=== PATIENT | male | born 1950 | race Two or more races ===

== ENCOUNTER 2018-09-18 06:59 | Emergency (ER) | payer OTHER ==
[~2018-09-18] VITALS: Ht 172.7 cm; Wt 79.4 kg
[2018-09-18] MEDS ORDERED: METFORMIN HCL500 M4 ORAL (07:13)
[2018-09-18] MEDS ORDERED: DIOVAN80 MG ORAL (07:13)
--- NOTE | 2018-09-18 07:24 | Emergency Room Report ---
History of Present Illness General Chief Complaint: General Complaint Source: Patient Present Illness HPI Patient was eating fish last week and has a bone stuck in his throat. No fevers. Pain when swallowing = burning, not sharp. No dyspnea or chest pain. Pain is rated 3/10. Nonradiating on the left side. He denies fevers or chills. He is able to eat. He has some pain with swallowing. H/O diabetes - not checked for long time No palpitations, nausea, vomiting, diarrhea, dysuria, abdominal pain, shortness of breath, depression, visual changes, headache. Allergies: Coded Allergies: No Known Allergies (Unverified , 09/18/18) Patient History Past Medical History: see triage record Social History: Denies: smoking Social History Narrative With daughter Reviewed Nursing Documentation: PMH: Agreed; PSxH: Agreed Nursing Documentation-PMH Past Medical History: No History, Except For Hx Hypertension: Yes - arthritis, sciatica, high cholesterol Hx Diabetes: Yes Review of Systems All Other Systems: negative except mentioned in HPI Physical Exam Vital Signs Date Time Temp Pulse Resp B/P (MAP) Pulse Ox O2 Delivery O2 Flow Rate FiO2 09/18/18 07:07 97.3 71 16 147/94 98 Room Air Sp02 EP Interpretation: reviewed, normal General Appearance: well appearing, no apparent distress, alert, GCS 15 Head: normocephalic, atraumatic Eyes: bilateral eye other - Pterygium ENT: moist mucus membranes, pharyngeal erythema, other - FB L tonsilar pillar Neck: full range of motion, supple, other - No stridor Respiratory: lungs clear, normal breath sounds, no respiratory distress, speaking full sentences Cardiovascular #1: regular rate, rhythm Cardiovascular #2: 2+ radial (R) Gastrointestinal: normal inspection Musculoskeletal: back normal, gait/station normal, normal range of motion Neurologic: alert, oriented x3, normal gait, grossly normal Psychiatric: mood/affect normal Skin: no rash Procedures Additional Procedure Procedure Narrative HurriCaine spray used. Direct laryngoscopy with GlideAScope. No FB seen. Abrasions below L tonsilar fossa. Medical Decision Making Diagnostic Impression: Primary Impression: Abrasion of pharynx Qualified Codes: S10.11XA - Abrasion of throat, initial encounter ER Course Patient presents with a burning feeling in his throat that he thinks coming from a fish bone which he ate a week ago. On initial exam it looks like there was one present. With direct visualization the fishbone was not present. Direct laryngoscopy indicated. Direct laryngoscopy done with Glidascope. Abrasion seen no foreign body. Soft tissue x-ray ordered. Amoxicillin also ordered. Accu-Chek normal. Soft tissue AP and lateral neck without foreign body. Patient improved with decreased pain after Hurricaine spray. Swallowing without difficulty. Discussed treatment plan with patient and daughter. Patient stable for outpatient observation and treatment. Other X-Ray Diagnostic Results Other X-Ray Diagnostic Results : X-Ray ordered: AP lateral soft tissue neck # of Views/Limited Vs Complete: 2 View Indication: Pain EP Interpretation: Yes Interpretation: no soft tissue swelling, other - Degenerative disc disease no foreign body Impression: Other Electronically Signed by: Electronically signed by Shon Banerjee MD Last Vital Signs Date Time Temp Pulse Resp B/P (MAP) Pulse Ox O2 Delivery O2 Flow Rate FiO2 09/18/18 10:11 98.0 75 16 132/76 98 Room Air Status: improved Disposition: HOME, SELF-CARE Condition: Improved Scripts Mag Hydrox/Al Hydrox/Simeth (MAALOX MAXIMUM STRENGTH SUSP) 355 Ml Oral.susp 30 ML PO Q6HR, #240 ML Prov: Shon Banerjee MD 09/18/18 Amoxicillin* (AMOXIL*) 500 Mg Capsule 500 MG ORAL THREE TIMES A DAY, #21 CAP Prov: Shon Banerjee MD 09/18/18 Shon Banerjee MD Sep 18, 2018 07:24
[2018-09-18 07:30] VITALS: BP 147/94
[2018-09-18] MEDS ORDERED: Hurricaine 20% Spray ORO ONE (07:30)
--- NOTE | 2018-09-18 07:34 | NUR ---
ED Nurse Note: Patient walked in to ER c/o fish bone stuck in Lt lower throat for a week. pt, Upper Sorbian speaker, accompanied by family member, aao x4 and calm and cooperative. fish bone was not visible but small lump noted on Lt lower throat of outside. skin clean and intact.
--- NOTE | 2018-09-18 07:45 | NUR ---
ED Nurse Note: Assisted Dr Banerjee at the bed side visualizing pt's throat via glidescope.
--- NOTE | 2018-09-18 08:53 | Diagnostic Imaging Report ---
Indication: Foreign body, neck pain Technique: 2 views of the neck with soft tissue technique Comparison: none Findings: No prevertebral soft tissue swelling. Normal epiglottis. No hypopharyngeal distention or glottic narrowing. No radiopaque foreign body demonstrated. There are degenerative changes of the cervical spine incidentally noted, with large ventral bars at C5-6 Impression: No acute process. No evidence of radiopaque foreign body
[2018-09-18] MEDS ORDERED: AMOXICILLIN500 MG ORAL (10:07)
[2018-09-18] MEDS ORDERED: MAALOX MAXIMUM355 M1 PO (10:07)
[2018-09-18 10:11] VITALS: BP 132/76
--- NOTE | 2018-09-18 10:14 | NUR ---
ER DISCHARGE NOTE: Patient is cleared to be discharged per ERMD, pt is aox4, on room air, with stable vital signs. pt was given dc and prescription instructions, pt was able to verbalize understanding, pt id band removed. pt is able to ambulate with steady gait. pt took all belongings.
== END 2018-09-18 10:16 | disposition home or self-care (01) ==
LOC: EMR 07:26
DX: S10.11XA Abrasion of throat, initial encounter (principal); X58.XXXA Exposure to other specified factors, initial encounter; Y93.9 Activity, unspecified; Y92.9 Unspecified place or not applicable; E11.9 Type 2 diabetes mellitus without complications; M19.90 Unspecified osteoarthritis, unspecified site; E78.00 Pure hypercholesterolemia, unspecified; H11.003 Unspecified pterygium of eye, bilateral; M50.322 Other cervical disc degeneration at C5-C6 level
CPT/HCPCS: 31525; 70360; 82962; 99283; Z7502